=== PATIENT | female | born 2000 | race Caucasian/White ===

== ENCOUNTER 2024-08-22 16:15 | Emergency (ER) | payer OTHER, SELFPAY ==
--- NOTE | 2024-08-22 16:39 | XR_ITS ---
The [address] [address] Patient Name: BINA ARMSTRONG MRN: [id number] date: 2000 Sex: F Assigned Patient Location: ED.MAIN Current Patient Location: ER Accession/Order Number: [id number] Exam Date: 08/22/2024 17:20 Report Date: 08/22/2024 18:48 At the request of: HUBERT STELRING Procedure: XR chest 2V Exam: Radiographs: XR chest 2V Reason for exam: cough Comparison: Chest x-ray dated 03/18/2012 XR/XR chest 2V IMPRESSION: Unremarkable chest x-ray. Electronically authenticated by: DION BLOCK Date: 08/22/2024 18:48
[2024-08-22 16:49] VITALS: BP 102/68; PULSE 70; TEMP 36.8; O2SAT 100; BMI 21.6
[2024-08-22 17:41] LABS: Influenza Virus A Antigen Negative; Influenza Virus B Antigen Negative; Internal Control Within Normal Limits
[2024-08-22 17:42] LABS: Internal Control Within Normal Limits; SARS-CoV-2 Ag NEGATIVE (NEGATIVE)
--- NOTE | 2024-08-22 18:54 | ED_ITS ---
HPI HPI - General Adult General Chief complaint: Upper Respiratory Infection Stated complaint: cough chest pain Time Seen by Provider: 08/22/24 16:39 Source: patient Mode of arrival: walk-in History of Present Illness HPI narrative: 24-year-old female presents here chief complaint of cough congestion. She said symptoms for the last couple of days. She is afebrile nontoxic lung sounds are clear. She is here with son who has similar symptoms. Related Data Allergies Allergy/AdvReac Type Severity Reaction Status Date / Time No Known Drug Allergies Allergy Verified 08/22/24 16:50 Opioid HPI Opioid Management Most Recent Opioid Data: No Data to Display Review of Systems ROS Narrative All Systems are negative except as noted/marked.All systems reviewed and otherwise negative PFSH PFSH Social History Little interest or pleasure in doing things: not at all Feeling down, depressed, or hopeless: not at all Exam Narrative Exam Narrative: Nurses note and vital signs reviewed and patient is not hypoxic. General: The patient appears well and in no apparent distress. Patient is resting comfortably on cart. Skin: Warm, dry, no pallor noted. There is no rash noted. Head: Normocephalic, atraumatic Eye: Normal conjunctiva, no drainage, EOMI. PERRL Ears, Nose, Mouth, and Throat: oral mucosa is moist. Nares patent. Mouth without vesicles. Ear canals patent. Tm's without Erythema Cardiovascular: Regular Rate and Rhythm Respiratory: Patient is in no distress, no accessory muscle use, lungs are clear to auscultation, no wheezing, rales or rhonchi Back: non-tender, no CVA tenderness bilaterally to percussion. GI: Normal bowel sounds, no tenderness to palpation, no masses appreciated. No rebound, guarding, or rigidity noted. Musculoskeletal: The patient has no evidence of calf tenderness, no pitting edema, symmetrical pulses noted bilaterally Neurological: A&O x4, normal speech Psychiatric: Cooperative Constitutional Vital Signs, click to edit/add: Last Vital Signs Temp 98.2 F 08/22/24 16:49 Pulse 70 08/22/24 16:49 Resp 16 08/22/24 16:49 BP 102/68 08/22/24 16:49 Pulse Ox 100 08/22/24 16:49 O2 Del Method Room Air 08/22/24 16:49 Course Vital Signs Vital signs: Vital Signs Temperature 98.2 F 08/22/24 16:49 Pulse Rate 70 08/22/24 16:49 Respiratory Rate 16 08/22/24 16:49 Blood Pressure 102/68 08/22/24 16:49 Pulse Oximetry 100 08/22/24 16:49 Oxygen Delivery Method Room Air 08/22/24 16:49 Temperature 98.2 F 08/22/24 16:49 Pulse Rate 70 08/22/24 16:49 Respiratory Rate 16 08/22/24 16:49 Blood Pressure 102/68 08/22/24 16:49 Pulse Oximetry 100 08/22/24 16:49 Oxygen Delivery Method Room Air 08/22/24 16:49 Medical Decision Making MDM Narrative Medical decision making narrative: Cough cold-like symptoms. Flu COVID and. Patient stable to be discharged home follow-up primary care physician. Patient made aware of results agrees with plan of care Differential Diagnosis Differential Diagnosis: uri, flu, covid Medical Records Medical records reviewed: Yes I reviewed the patient's medical records Lab Data Lab results reviewed: Yes I reviewed the patient's lab results Labs: Lab Results 08/22/24 Range/Units 16:52 Influenza Type A Ag Negative Influenza Type B Ag Negative SARS-CoV-2 Ag (CV2AG) Negative (NEGATIVE) Imaging Data Chest x-ray: Radiologist's impression: ITS Impressions Chest X-Ray 08/22/24 16:39 IMPRESSION: Unremarkable chest x-ray. Electronically authenticated by: DION BLOCK Date: 08/22/2024 18:48 Discharge Plan Discharge Chief Complaint: Upper Respiratory Infection Clinical Impression: Upper respiratory infection Patient Disposition: Home, Self-Care Time of Disposition Decision: 18:53 Condition: Good Print Language: Iranian Instructions: Upper Respiratory Infection (ED) Referrals: Jassi Mckeon DDS [Primary Care Provider] - 1 week
--- NOTE | 2024-08-22 19:20 | PC.NURSE ---
i gave this patient verbal and paper discharge orders and this patient voics yes to understanding these. at time of discharge this patient voices no concerns and shows no signs of distress
== END 2024-08-22 19:21 | disposition home or self-care (01) ==
PROVIDERS: Physician Assistant; Emergency Provider Emergency Medicine Emergency Medical Services; PCP Internal Medicine
DX: J06.9 Acute upper respiratory infection, unspecified (principal)
CPT/HCPCS: 71046; 87804; 87811; 99285